=== PATIENT | female | born 1990 | race African-American/Black ===

== ENCOUNTER 2020-03-12 03:52 | Emergency (ER) | payer SELFPAY ==
[~2020-03-12] VITALS: Ht 167.6 cm; Wt 46.3 kg
[2020-03-12] MEDS ORDERED: ALPR1TAB7 PO (04:19)
[2020-03-12] MEDS ORDERED: GABA-1201 PO (04:19)
[2020-03-12] MEDS ORDERED: SERT50TA12 PO (04:19)
[2020-03-12] MEDS ORDERED: QUET100T PO (04:19)
[2020-03-12 09:54] VITALS: BP 103/68
== END 2020-03-12 10:20 | disposition home or self-care (01) ==
LOC: EMS 03:52
DX: F69 Unspecified disorder of adult personality and behavior (principal); F41.9 Anxiety disorder, unspecified; F31.9 Bipolar disorder, unspecified; F20.9 Schizophrenia, unspecified; Y35.811A Legal intervention involving manhandling, law enforcement official injured, initial encounter; Y93.89 Activity, other specified; Y92.89 Other specified places as the place of occurrence of the external cause; Y99.8 Other external cause status